=== PATIENT | male | born 1940 | race Caucasian/White ===

== ENCOUNTER 2016-11-11 09:00 | Inpatient (IN) | payer MEDICARE, OTHER ==
[~2016-11-11] VITALS: Ht 175.3 cm; Wt 99.0 kg
--- NOTE | ~2016-11-11 | OR ---
PATIENT'S NAME: DANICA KARTHIKEYAN Mirta [facility] AGE: 76 Y [address] ROOM: [place] [address] LOCATION: [facility] ADMIT DATE: 11/23/2016 OR/Procedure Report DISCHARGE DATE: FAMILY PHYSICIAN: TING BALDWIN MD ATTENDING PHYSICIAN: KARTHIKEYAN OSHEA SURGEON: Karthikeyan Oshea MD HOSPITAL CLEANER: Bacilio Dela Cruz PA-C and Mitchell Rivers CST/NURIS. DATE OF PROCEDURE: 11/23/2016 PRE-OP DIAGNOSIS: Primary osteoarthritis, right hip. POST-OP DIAGNOSIS: Primary osteoarthritis, right hip. OPERATION: Right total hip arthroplasty. ANESTHESIA: Spinal anesthesia periarticular local anesthesia (ropivacaine with epinephrine). ESTIMATED BLOOD LOSS: Approximately 250 mL. DRAIN: None. SPECIMEN: None. COMPLICATIONS: None. IMPLANTS: [place] Trident titanium size 56 mm hemispherical uncemented acetabular shell with 1 dome hole cover and no screws. [place] X3 Neutral acetabular polyethylene liner with 36 mm inner diameter. [place] Accolade II size 7 high-offset uncemented femoral component. A 36 mm diameter metallic femoral head with +0 mm neck length. INDICATION FOR SURGERY: Karthikeyan Mishra is a 76-year-old male who presents with advanced right hip primary osteoarthritis and associated severely compromised activities of daily living. The patient has decided to proceed with hip replacement after having been thoroughly counseled regarding the associated risks, benefits, and limitations. We have specifically reviewed the risks and implications of infection, deep venous thrombosis, pulmonary embolism, mortality, neurovascular complications, blood transfusion (and associated potential for disease transmission or transfusion reaction), stiffness, instability, leg length discrepancy, mechanical deterioration of the components (due to wear and to loosening), and the potential need for revision. PATIENT'S NAME: DANICA KARTHIKEYAN Mirta [facility] AGE: 76 Y [address] ROOM: [place] [address] LOCATION: [facility] ADMIT DATE: 11/23/2016 OR/Procedure Report DISCHARGE DATE: FAMILY PHYSICIAN: TING BALDWIN MD ATTENDING PHYSICIAN: KARTHIKEYAN OSHEA DESCRIPTION OF PROCEDURE: The patient was positioned in a lateral decubitus position with the right side up after administration of anesthesia and prophylactic antibiotics. An axillary roll was placed and the non-operative leg was well padded. The pelvis was locked perpendicularly to the floor on a pegboard. The right hip and entire operative extremity were prepped and draped with vigilant sterile technique. The patient's name as well as the intended operative side and procedure were confirmed with a verbal time-out involving myself, the circulating nurse, the scrub nurse, and the anesthesiologist. The right hip was approached through a standard posterolateral incision. The fascia fanta and the gluteus trina fascia were sharply divided in line with the overlying skin incision. The sciatic nerve was identified and was vigilantly protected throughout the entire case. The short external rotators and posterior capsule were divided from their respective femoral insertions and tagged with four #1 Ethibond sutures for later repair. The hip was posteriorly dislocated with combined flexion, adduction, and internal rotation. The femoral neck osteotomy was performed with an oscillating saw. Inspection of the femoral head demonstrated full-thickness loss of articular cartilage throughout its weightbearing surface. There was no femoral head collapse. Circumferential acetabular exposure was obtained. Inspection of the acetabulum demonstrated a large effusion consisting of benign-appearing translucent synovial fluid. There was a large (at least 3 cm diameter) paralabral cyst at the cephalad aspect of the acetabular margin. This was filled with thick mucinous fluid. This was decompressed and excised. There was extensive degenerative tearing of remnant of the acetabular labrum. There was full-thickness loss of articular cartilage throughout the majority of the acetabular dome. There was a moderate-sized medial acetabular osteophyte. There was no dysplasia. Remnants of the acetabular labrum were sharply thoroughly excised. The acetabulum was sequentially progressively reamed up to 55 mm with hemispherical power reamers. The final acetabular shell was impacted into position in 20 degrees of anteversion and 45 degrees of inclination. An excellent press-fit was obtained. No supplemental dome screw fixation was necessary. A neutral trial liner was inserted. Attention was next focused upon femoral preparation. The femoral canal initiator was utilized. No reaming was performed (except for with a canal finder). The size 7 broach obtained excellent axial and rotational stability. Trial reductions with the above specified construct yielded acceptable stability and acceptable reproduction of leg length and offset. All trial components were removed. PATIENT'S NAME: KARTHIKEYAN MISHRA [facility] AGE: 76 Y [address] ROOM: [address] [address] LOCATION: G3 ADMIT DATE: 11/23/2016 OR/Procedure Report DISCHARGE DATE: FAMILY PHYSICIAN: TING BALDWIN MD ATTENDING PHYSICIAN: KARTHIKEYAN OSHEA The final acetabular liner was inserted with excellent circumferential visualization of its locking mechanism to assure adequate deployment. The final femoral component was impacted into position. The femoral component achieved excellent axial and rotational stability. The trunnion of the femoral component was vigilantly protected prior to placement of the femoral head. The trunnion of the femoral component was thoroughly cleaned and dried prior to placement of the femoral head. The incision was thoroughly irrigated with bacteriostatic pulsatile saline lavage multiple times throughout the case. The entire joint space was thoroughly inspected and thoroughly irrigated to assure that there was no residual debris of any sort. A final reduction was then performed. After final reduction, the hip could be firmly externally rotated in full extension and zero degrees of abduction without anterior subluxation. In neutral rotation and zero degrees of abduction, the hip could be firmly flexed to 120 degrees without instability. At 90 degrees of flexion and zero degrees abduction, the hip could be internally rotated to 55 degrees before there was any hint of posterior subluxation. The posterior capsule and short external rotators were repaired through two drill holes in the posterior aspect of the greater trochanter. The fascia fanta and gluteus trina fascia were closed with multiple simple and [id number] interrupted # 1 Ethibond and #1 Vicryl sutures. Subcutaneous tissues were thoroughly re-irrigated with bacteriostatic pulsatile saline lavage. Subcutaneous tissues were re-approximated with simple buried interrupted #0 Vicryl sutures. The skin was closed with superficial buried interrupted 2-0 Vicryl sutures followed by a running subcuticular 3-0 Monocryl suture, followed by Octylseal, followed by Steri- Strips with benzoin, followed by an occlusive Mepilex dressing. There were no intra-operative complications. It should be noted that the physician's life enrichment assistant played an active, integral role throughout this entire operation. By providing expert retraction, they greatly facilitated and expedited safe and effective exposure of the proximal femur and acetabulum for preparation and implantation of the components. They were also actively involved in the patient's positioning, prepping and draping, as well as wound closure. PATIENT'S NAME: KARTHIKEYAN MISHRA [facility] AGE: 76 Y [address] ROOM: [place] [address] LOCATION: [facility] ADMIT DATE: 11/23/2016 OR/Procedure Report DISCHARGE DATE: FAMILY PHYSICIAN: TING BALDWIN MD ATTENDING PHYSICIAN: KARTHIKEYAN OSHEA MD [email or web address]/myriaml /[id number] d: 11/23/16 1320 t: 11/30/16 1311, OPERATIVE SUMMARY
[~2016-11-11 09:00] MED LIST: ASPIRIN LO-DOSE81 MG PO; CLARITIN10 MG PO; COZAAR100 MG PO; DULCOLAX10 MG R; ESSENTIAL DAIL1 EACH PO; FLONASE 50 MCG/16 GM NOSE; LIPITOR20 M1 PO; LOPRESSOR25 MG PO; MILK OF MA400 MG/5 M PO; MOBIC15 MG PO; NORVASC10 MG PO; TYLENOL PM EX-1 EACH PO; ULTRAM50 MG PO; VITAMIN D35000 UNI1 PO
[2016-11-11] MEDS ORDERED: COZAAR100 MG PO (09:27)
[2016-11-11] MEDS ORDERED: PRILOSEC20 MG PO (09:29)
[2016-11-24] MEDS ORDERED: XARELTO10 MG PO (16:33)
[2016-11-24] MEDS ORDERED: TYLENOL EXTRA500 MG PO (16:34)
[2016-11-24] MEDS ORDERED: COLACE100 MG PO (16:35)
[2016-11-24] MEDS ORDERED: ROXICODONE 5MG (5 MG PO (16:40)
== END 2016-11-24 17:26 | disposition disaster alternative care site (69) | DRG 470 ==
LOC: G3N 11-23 05:43
PROVIDERS: ADMIT Orthopaedic Surgery
PROC: 0SR902A Replacement of Right Hip Joint with Metal on Polyethylene Synthetic Substitute, Uncemented, Open Approach (ICD-10-PCS; principal; 2016-11-23)
DX: M16.11 Unilateral primary osteoarthritis, right hip (principal); E11.9 Type 2 diabetes mellitus without complications; M48.02 Spinal stenosis, cervical region; I10 Essential (primary) hypertension; E78.5 Hyperlipidemia, unspecified; K21.9 Gastro-esophageal reflux disease without esophagitis; E55.9 Vitamin D deficiency, unspecified; H91.93 Unspecified hearing loss, bilateral; Z96.653 Presence of artificial knee joint, bilateral; Z79.82 Long term (current) use of aspirin; L57.0 Actinic keratosis; L82.1 Other seborrheic keratosis; Z85.820 Personal history of malignant melanoma of skin; J30.9 Allergic rhinitis, unspecified; M48.06 Spinal stenosis, lumbar region; E66.9 Obesity, unspecified; Z68.32 Body mass index [BMI] 32.0-32.9, adult
CPT/HCPCS: C1776; J0690; J1885; J2001; J2795; J3010; J7120

== ENCOUNTER → 2016-11-12 | Outpatient (CLI) | payer MEDICARE, OTHER ==
[~2016-11-12] MED LIST changes: +COLACE100 MG PO; +PRILOSEC20 MG PO; +ROXICODONE 5MG (5 MG PO; +TYLENOL EXTRA500 MG PO; +XARELTO10 MG PO
== END ==
LOC: GNJRC 10:31
DX: Z01.818 Encounter for other preprocedural examination (principal); M16.11 Unilateral primary osteoarthritis, right hip; Z79.899 Other long term (current) drug therapy